=== PATIENT | female | born 1980 | race Caucasian/White ===

== ENCOUNTER 2020-10-18 22:48 | Emergency (ER) | payer BC, OTHER ==
[2020-10-19 00:18] LABS: BUN/CREATININE RATIO 19 (0-10)
[2020-10-19 00:23] LABS: HEMOGLOBIN 12.8 gm/dl (12.3-15.3); RED BLOOD COUNT 4.32 M/UL (4.00-5.10); WHITE BLOOD COUNT 16.3 K/UL (4.5-11.0)
[2020-10-19] MEDS ORDERED: US Gall Bladder (02:57)
[2020-10-19] MEDS ORDERED: PEPCID40 MG PO (02:57)
== END 2020-10-19 03:11 | disposition home or self-care (01) ==
LOC: ER1 22:48
PROVIDERS: Family Medicine
DX: R10.11 Right upper quadrant pain (principal)
CPT/HCPCS: 36415; 80053; 81001; 83690; 84702; 85025; 99284